=== PATIENT | male | born 1965 | race Caucasian/White ===

== ENCOUNTER 2019-12-03 18:34 | Emergency (ER) | payer SELFPAY ==
[~2019-12-03] VITALS: Ht 167.6 cm; Wt 65.0 kg
[2019-12-03 18:36] VITALS: BP 139/83
== END 2019-12-03 23:41 | disposition left against medical advice (07) ==
LOC: ER 18:34
DX: R53.1 Weakness (principal); Z53.21 Procedure and treatment not carried out due to patient leaving prior to being seen by health care provider